=== PATIENT | female | born 1985 | race Two or more races ===

== ENCOUNTER 2018-03-26 03:15 | Inpatient (IN) | payer OTHER ==
[2018-03-26] MEDS: DEXTROSE 5%-LACTATED RINGERS 1,000 ML IV SCH (03:40)
--- NOTE | 2018-03-26 04:14 | HP ---
Past Medical History - Admission Chief Complaint: contractions History of Present Illness: 32yo EDC 03/28/2018 [facility]UP at 39.5 weeks presents with c/o ctx, some vaginal bleeding, no lof. care at [address] [place], [place] [id number] uncomplicated. labs reviewed: O+/RPR NR/Hep bsag negative/Rubella immune/quantiferon negative/ HIV negative; GBS positive. 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: Alzheimer's, CVA, Dementia, Migraine, Multiple Sclerosis, Peripheral Neuropathy, Parkinson's, Seizure, Syncope, TIA, Vertigo, Other Cardiovascular: No: AFIB, Aneurysm, Aortic Insufficiency, Aortic Stenosis, CAD, CHF, Deep Vein Thrombosis, HTN, Hyperlipdemia, [place], Mitral Insufficiency, Mitral Stenosis, Murmur, Pulmonary Hypertension, Other Pulmonary: No: Asthma, Bronchitis, Cancer, COPD, O2 Dependent, Pneumonia, Previously Intubated, Pulmonary Embolus, Pulmonary Fibrosis, Sleep Apnea, Other Gastrointestinal: No: Ascites, Cancer, Constipation, Crohn's Disease, Diverticulitis, Diverticulosis, Esophageal Varices, Gastritis, GERD, GI Bleed, Hemorrhoids, Hiatal Hernia, Inflamatory Bowel Disease, Irritable Bowel Disease, Pancreatitis, Peptic Ulcer Disease, Ulcerative Colitis, Other Hepatobiliary: No: Cirrhosis, Cholelithiasis, Cholecystitis, Choledocholithiasis , Hepatitis A, Hepatitis B, Hepatitis C, Other Renal/: No: Renal Failure, Renal Inusuff, BPH, Cancer, Hematuria, Hemodialysis , Neurogenic Bladder, Renal Calculi, UTI, Other Reproductive: No: Ectopic , Endometriosis, Fibroids, PID, Polycystic Ovary Syndrome, Postmenopausal, Other ...: 3 ...Para: 2 ...Term: 2 ...: 0 ...Spon : 0 ...Induced : 0 ...Multiple Gestation: 0 ...LMP: 06/21/17 ... Weeks Gestation by Dates: 39.5 ...EDC by Dates: 03/28/18 Infectious Disease: No: AIDS, C-Diff, Herpes Zoster, HIV, MRSA, STD's, Tuberculosis, VREF, Other Psych: No: Addictions, Anxiety, Bipolar, Depression, Panic, Psychosis, Schizophrenia, Other Musculoskeletal: No: Bursitis, Chronic low back pain, Hemiparesis, Hemiplegia, Osteoarthritis, Paraplegia, Other Rheumatology: No: Fibromyalgia, Gout, Lupus, Rheumatoid Arthritis, Sarcoidosis, Vasculitis, Other ENT: No: Allergic Rhinitis, Sinusitis, Other - Past Surgical History Past Surgical History: Yes: None Hx Myomectomy: No Hx Transabdominal Cerclage: No - Smoking History Smoking history: Never smoked Have you smoked in the past 12 months: No - Alcohol/Substance Use Hx Alcohol Use: No History of Substance Use: reports: None Home Medications - Allergies Allergies/Adverse Reactions: Allergies Allergy/AdvReac Type Severity Reaction Status Date / Time No Known Allergies Allergy Verified 03/19/18 14:06 - Home Medications Home Medications: Ambulatory Orders One Tablet 1 tab PO DAILY 03/19/18 Family Disease History - Family Disease History Family History: Unremarkable Review of Systems - Review of Systems Constitutional: reports: No Symptoms Eyes: reports: No Symptoms HENT: reports: No Symptoms Neck: reports: No Symptoms Cardiovascular: reports: No Symptoms Respiratory: reports: No Symptoms Gastrointestinal: reports: Abdominal Pain Genitourinary: reports: No Symptoms Breasts: reports: No Symptoms Reported Musculoskeletal: reports: No Symptoms Integumentary: reports: No Symptoms Physical Exam - Maternity Constitutional: Yes: Well Nourished, No Distress, Calm Eyes: Yes: WNL, Conjunctiva Clear, EOM Intact HENT: Yes: WNL, Atraumatic, Normocephalic Neck: Yes: WNL, Supple, Trachea Midline Cardiovascular: Yes: WNL, Regular Rate and Rhythm Breast(s): Yes: WNL - Abdominal Exam/OB Fundal Height: 39 Number of Fetuses: Single Presentation: Vertex Contractions: Yes Regularity: Irregular Intensity: Mild/Mod Monitor Mode: External Heart Rate (range): 145 Category: I Accelerations: None - Vaginal Exam/OB Vaginal Bleediing: No Dilatation (cm): 4 Effacement (%): 90 Amniotic Membrane Status: Bulging Presentation: Vertex/Position Station: -3 - Physical Exam Musculoskeletal: Yes: WNL Extremities: Yes: WNL Edema: No Integumentary: Yes: WNL ...Motor Strength: WNL Psychiatric: Yes: WNL Hemorrhage Risk Assessment - Risk Factors Medium Risk Factors: Yes: None High Risk Factors: Yes: None Risk Score: 1 Risk Level: Medium Risk Problem List - Problems (1) Labor and delivery indication for care or intervention Assessment/Plan: 32yo at 39.5 weeks in early labor admit to labor and delivery gbs positive-penicillin for prophylaxis pain management as needed expectant management for now category [address] Mcnamara Code(s): O75.9 - COMPLICATION OF LABOR AND DELIVERY, UNSPECIFIED
[2018-03-26] MEDS ORDERED: AMPICILLIN SODIUM 2 GM VIAL ONE (04:15)
[2018-03-26] MEDS ORDERED: BUTORPHANOL TARTRATE 1 MG/ML VIAL IVPB ONE (04:30)
[2018-03-26] MEDS ORDERED: PROMETHAZINE HCL 25 MG/1 ML VIAL IVPUSH ONE (04:30)
[2018-03-26] MEDS ORDERED: AMPICILLIN - 2 GM in SODIUM CHLORIDE 100 ML IVPB ONE (04:30)
[2018-03-26 04:35] LABS: BASO % 0.8 % (0-2.0); EOS % 2.6 % (0-4.5); HEMATOCRIT 37.6 % (32.4-45.2); HEMOGLOBIN 12.5 GM/dL (10.7-15.3); LYMPH % 31.4 % (8-40); MCH 31.6 pg (25.7-33.7); MCHC 33.3 g/dl (32.0-36.0); MEAN CELL VOLUME 94.8 fl (80-96); MEAN PLT VOLUME 9.3 fl (7.5-11.1); MONO % 6.9 % (3.8-10.2); NEUT % 58.3 % (42.8-82.8); PLATELET COUNT 216 K/MM3 (134-434); RBC 3.96 M/mm3 (3.60-5.2); RDW 13.2 % (11.6-15.6); WHITE BLOOD COUNT 6.9 K/mm3 (4.0-10.0)
[2018-03-26 04:38] VITALS: BMI 33.5
[2018-03-26 04:55] LABS: INR 0.82 (0.83-1.09); PROTHROMBIN TIME (PATIENT) 9.7 SEC (9.7-13.0)
[2018-03-26 04:58] LABS: ACTIVATED PTT 30.8 SECONDS (25.2-36.5)
[2018-03-26 05:18] LABS: ANION GAP 6 MMOL/L (8-16); BLOOD UREA NITROGEN 10 mg/dL (7-18); CALCIUM 8.6 mg/dL (8.5-10.1); CHLORIDE 107 mmol/L (98-107); CO2 27 mmol/L (21-32); CREATININE 0.7 mg/dL (0.55-1.3); GLUCOSE,RANDOM 82 mg/dL (74-106); POTASSIUM 4.8 mmol/L (3.5-5.1); SODIUM 139 mmol/L (136-145)
[2018-03-26] MEDS ORDERED: OXYTOCIN 20 UNITS in 0.9% NS 20 UNIT/1,000 ML INFUS.BAG IV ONE ×2 (07:12→10:15)
[2018-03-26] MEDS ORDERED: LIDOCAINE HCL 1% PRESERVATIVE FREE - 30ML VIAL ONE (07:12)
[2018-03-26] MEDS: OXYTOCIN 20 UNITS in 0.9% NS 20 UNIT/1,000 ML INFUS.BAG IV SCH (08:00)
[2018-03-26] MEDS ORDERED: WITCH HAZEL 50% (TUCKS) 40 PAD/JAR PAD TP PRN (08:02)
[2018-03-26] MEDS ORDERED: METHYLERGONOVINE MALEATE 0.2 MG/1 ML AMP IM PRN (08:02)
[2018-03-26] MEDS ORDERED: BENZOCAINE 28 GM HEMORRHOIDAL OINTMENT TP PRN (08:02)
[2018-03-26] MEDS ORDERED: BENZOCAINE 20% 57 GM BOTTLE TP PRN (08:02)
[2018-03-26] MEDS ORDERED: BISACODYL 10 MG SUPP.RECT RC PRN (08:02)
--- NOTE | 2018-03-26 08:06 | PN ---
Delivery - Delivery Vaginal Delivery: Spontaneous Episiotomy/Laceration: None EBL (cc): 250 Delivery, Single - Feeding Plan Initial Plan: Exclusive throughout hospitalization Remarks - Remarks Remarks: Normal spontaneous vaginal delivery of a live over intact perineum. Nose / Oropharynx suctioned @ perineum. Cord clamped and cut. Baby handed to neonatology nurse. Placenta expelled spontaneously intact.
[2018-03-26] MEDS: AMPICILLIN - 1 GM in SODIUM CHLORIDE 100 ML IVPB SCH (09:15)
[2018-03-26] MEDS: PRENATAL VITAMINS W/ FOLIC ACID TABLET (FP) PO SCH (13:22)
[2018-03-26] MEDS: FERROUS SO4 325 MG TABLET (FP) PO SCH ×2 (13:22→21:13)
[2018-03-26] MEDS: IBUPROFEN 600 MG TABLET (FP) PO PRN ×2 (16:37→22:44)
[2018-03-26] MEDS: ACETAMINOPHEN 325 MG TABLET (FP) PO PRN ×2 (16:38→22:44)
--- NOTE | 2018-03-27 07:20 | PN ---
Post Progress Note Type of Delivery: Vital Signs: Vital Signs Temperature 97.9 F 03/27/18 06:00 Pulse Rate 68 03/27/18 06:00 Respiratory Rate 20 03/27/18 06:00 Blood Pressure 98/54 L 03/27/18 06:00 O2 Sat by Pulse Oximetry (%) 100 03/26/18 09:30 Uterus: Yes: Fundus Firm, Fundus @ umbilicus Abdomen/GI: Yes: Abdomen soft Lochia: Yes: Rubra Lochia, amount: Small Extremities: Yes: Calves non-tender Perineum: Yes: Intact Activity: Ambulating - Labs Labs: CBC WBC 6.9 K/mm3 (4.0-10.0) 03/26/18 04:10 RBC 3.96 M/mm3 (3.60-5.2) 03/26/18 04:10 Hgb 12.5 GM/dL (10.7-15.3) 03/26/18 04:10 Hct 37.6 % (32.4-45.2) 03/26/18 04:10 MCV 94.8 fl (80-96) 03/26/18 04:10 MCH 31.6 pg (25.7-33.7) 03/26/18 04:10 MCHC 33.3 g/dl (32.0-36.0) 03/26/18 04:10 RDW 13.2 % (11.6-15.6) 03/26/18 04:10 Plt Count 216 K/MM3 (134-434) 03/26/18 04:10 MPV 9.3 fl (7.5-11.1) 03/26/18 04:10 Absolute Neuts (auto) 4.0 K/mm3 (1.5-8.0) 03/26/18 04:10 Neutrophils % 58.3 % (42.8-82.8) 03/26/18 04:10 Lymphocytes % 31.4 % (8-40) 03/26/18 04:10 Monocytes % 6.9 % (3.8-10.2) 03/26/18 04:10 Eosinophils % 2.6 % (0-4.5) 03/26/18 04:10 Basophils % 0.8 % (0-2.0) 03/26/18 04:10 Nucleated RBC % 0 % (0-0) 03/26/18 04:10 Assessment/Plan 32yo s/p , PPD#1 Routine PP care OOB, ambulate Labs pending Anticipate d/c to home tomorrow Viridiana Rajput MD
[2018-03-27 08:04] LABS: BASO % 0.8 % (0-2.0); EOS % 1.7 % (0-4.5); HEMATOCRIT 31.3 % (32.4-45.2); HEMOGLOBIN 10.3 GM/dL (10.7-15.3); LYMPH % 22.9 % (8-40); MCHC 32.9 g/dl (32.0-36.0); MEAN CELL VOLUME 94.4 fl (80-96); MEAN PLT VOLUME 9.3 fl (7.5-11.1); MONO % 5.3 % (3.8-10.2); NEUT % 69.3 % (42.8-82.8); PLATELET COUNT 168 K/MM3 (134-434); RBC 3.31 M/mm3 (3.60-5.2); RDW 13.5 % (11.6-15.6); WHITE BLOOD COUNT 11.6 K/mm3 (4.0-10.0)
[2018-03-27] MEDS: FERROUS SO4 325 MG TABLET (FP) PO SCH ×2 (09:39→22:12)
[2018-03-27] MEDS: PRENATAL VITAMINS W/ FOLIC ACID TABLET (FP) PO SCH (09:39)
[2018-03-27] MEDS ORDERED: DIPHTH,PERTUSS(ACELL),TET 0.5 ML DISP.SYRIN IM ONE (10:00)
[2018-03-27] MEDS: IBUPROFEN 600 MG TABLET (FP) PO PRN ×2 (18:02→22:12)
[2018-03-27] MEDS: ACETAMINOPHEN 325 MG TABLET (FP) PO PRN ×2 (18:03→22:14)
[2018-03-27] MEDS: DEXTROSE 5%-LACTATED RINGERS 1,000 ML IV SCH (21:34)
[2018-03-27] MEDS: OXYTOCIN 20 UNITS in 0.9% NS 20 UNIT/1,000 ML INFUS.BAG IV SCH (21:34)
[2018-03-27] MEDS ORDERED: SENNOSIDES/DOCUSATE COMBO (SENNA PLUS) TABLET (UD) PO PRN (22:00)
[2018-03-28] MEDS: AMPICILLIN - 1 GM in SODIUM CHLORIDE 100 ML IVPB SCH (00:47)
[2018-03-28 08:22] VITALS: BP 106/66; PULSE 71; TEMP 98.7
[2018-03-28] MEDS: FERROUS SO4 325 MG TABLET (FP) PO SCH (09:49)
[2018-03-28] MEDS: PRENATAL VITAMINS W/ FOLIC ACID TABLET (FP) PO SCH (09:49)
[2018-03-28] MEDS: IBUPROFEN 600 MG TABLET (FP) PO PRN (09:49)
== END 2018-03-28 11:35 | disposition home or self-care (01) | DRG 560 ==
LOC: JDEL 03:15 → JLDR 04:00 → J3W 10:30
PROVIDERS: ADMIT Obstetrics & Gynecology; ATTEND Obstetrics & Gynecology
PROC: 10E0XZZ Delivery of Products of Conception, External Approach (ICD-10-PCS; principal; 2018-03-26)
DX: O80 Encounter for full-term uncomplicated delivery (principal); Z3A.39 39 weeks gestation of pregnancy; Z37.0 Single live birth
CPT/HCPCS: 36415; 59409; 80048; 85025; 85610; 85730; 86593; 86850; 86900; 86901; 90686; 90715; G0008

== ENCOUNTER 2019-05-16 00:55 | Inpatient (IN) | payer OTHER ==
[2019-05-16] MEDS ORDERED: METHYLERGONOVINE MALEATE 0.2 MG/1 ML AMP IM PRN (01:39)
[2019-05-16] MEDS ORDERED: BENZOCAINE 28 GM HEMORRHOIDAL OINTMENT TP PRN (01:39)
[2019-05-16] MEDS ORDERED: BISACODYL 10 MG SUPP.RECT RC PRN (01:39)
[2019-05-16] MEDS ORDERED: BENZOCAINE 20% 57 GM BOTTLE TP PRN (01:39)
[2019-05-16] MEDS ORDERED: WITCH HAZEL 50% (TUCKS) 40 PAD/JAR PAD TP PRN (01:39)
--- NOTE | 2019-05-16 01:42 | HP ---
Past Medical History - Admission Chief Complaint: Uterine contractions History of Present Illness: 33yo @ 39+wks by LMP/sono, TAMIKO 05/19/2019 here with uterine contractions , . Patient presented to unit with head delivered already No VB. No LOF. +ctx. 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: Alzheimer's, CVA, Dementia, Migraine, Multiple Sclerosis, Peripheral Neuropathy, Parkinson's, Seizure, Syncope, TIA, Vertigo, Other Cardiovascular: No: AFIB, Aneurysm, Aortic Insufficiency, Aortic Stenosis, CAD, CHF, Deep Vein Thrombosis, HTN, Hyperlipdemia, [place], Mitral Insufficiency, Mitral Stenosis, Murmur, Pulmonary Hypertension, Other Pulmonary: No: Asthma, Bronchitis, Cancer, COPD, O2 Dependent, Pneumonia, Previously Intubated, Pulmonary Embolus, Pulmonary Fibrosis, Sleep Apnea, Other Gastrointestinal: No: Ascites, Cancer, Constipation, Crohn's Disease, Diverticulitis, Diverticulosis, Esophageal Varices, Gastritis, GERD, GI Bleed, Hemorrhoids, Hiatal Hernia, Inflamatory Bowel Disease, Irritable Bowel Disease, Pancreatitis, Peptic Ulcer Disease, Ulcerative Colitis, Other ...: 4 ...Para: 3 ...Term: 3 ...Spon : 0 ...Induced : 0 ...EDC by Sono: 05/19/19 - Past Surgical History Past Surgical History: Yes: None Hx Myomectomy: No Hx Transabdominal Cerclage: No - Smoking History Smoking history: Never smoked Have you smoked in the past 12 months: No - Alcohol/Substance Use Hx Alcohol Use: No History of Substance Use: reports: None - Social History Usual Living Arrangement: Yes: With Spouse Do you think of yourself as: Straight/Heterosexual ADL: Independent History of Recent Travel: Yes Home Medications - Allergies Allergies/Adverse Reactions: Allergies Allergy/AdvReac Type Severity Reaction Status Date / Time No Known Allergies Allergy Verified 03/26/18 05:29 - Home Medications Home Medications: Ambulatory Orders One Tablet 1 tab PO DAILY 03/19/18 Ibuprofen [Motrin -] 600 mg PO QID #28 tablet 03/27/18 Review of Systems - Review of Systems Constitutional: denies: No Symptoms, Chills, Diaphoresis, Fever, Lethargy, Loss of Appetite, Malaise, Night Sweats, Unintentional Wgt. Loss, Weakness, Other Cardiovascular: denies: No Symptoms, Chest Pain, Edema, Palpitations, Shortness of Breath, Other Respiratory: denies: No Symptoms, Cough, Exercise Intolerance, Hemoptysis, Orthopnea, PND, Snoring, SOB, SOB on Exertion, Wheezing, Other Gastrointestinal: denies: No Symptoms, Abdominal Pain, Bloating, Constipation, Diarrhea, Dysphagia, Indigestion, Melena, Nausea, Rectal Bleeding, Vomiting, Vomiting Blood, Other Physical Exam - Maternity Constitutional: Yes: Well Nourished, No Distress, Calm - Abdominal Exam/OB Number of Fetuses: Single Presentation: Vertex Contractions: Yes - Vaginal Exam/OB Dilatation (cm): 10 Effacement (%): 100 Station: +4 Assessment/Plan 33yo @ 39+wks here delivering Admit to LD Christie Rajput MD
--- NOTE | 2019-05-16 01:43 | PN ---
Delivery - Delivery Vaginal Delivery: Spontaneous Type of Anesthesia: None Episiotomy/Laceration: None Delivery, Single - Condition of Infant Nipple Threader/Trauma Therapist Present: No Gender: Male - 1 Minute Total Score: 4 5 Minutes Total Score: 8 Remarks - Remarks Remarks: Patient arrived to unit via wheelchair with 's head delivered. Nuchal x 1 , delivered through via nursing staff. Spontaneous delivery of intact placenta, 3VC by laborist Dr. Giles. Perineum inspected, no lacerations. EBL per nursing staff 250ml, this MD unable to assess EBL as room cleared prior to entry. Mother and baby doing well. Viridiana Rajput MD
[2019-05-16] MEDS ORDERED: OXYTOCIN 20 UNITS in 0.9% NS 20 UNIT/1,000 ML INFUS.BAG IV SCH (01:45)
[2019-05-16 02:09] VITALS: BMI 37.7
[2019-05-16 02:09] LABS: BASO % 0.4 % (0-2.0); EOS % 0.9 % (0-4.5); HEMATOCRIT 39.4 % (32.4-45.2); HEMOGLOBIN 13.4 GM/dL (10.7-15.3); LYMPH % 10.3 % (8-40); MCH 31.7 pg (25.7-33.7); MEAN CELL VOLUME 93.3 fl (80-96); MEAN PLT VOLUME 10.1 fl (7.5-11.1); MONO % 4.2 % (3.8-10.2); NEUT % 84.2 % (42.8-82.8); PLATELET COUNT 198 K/MM3 (134-434); RBC 4.23 M/mm3 (3.60-5.2); RDW 14.2 % (11.6-15.6); WHITE BLOOD COUNT 9.2 K/mm3 (4.0-10.0)
[2019-05-16 02:25] LABS: INR 0.87 (0.83-1.09); PROTHROMBIN TIME (PATIENT) 10.3 SEC (9.7-13.0)
[2019-05-16 02:33] LABS: BLOOD UREA NITROGEN 9.1 mg/dL (7-18); CALCIUM 9.1 mg/dL (8.5-10.1); CREATININE 0.9 mg/dL (0.55-1.3); POTASSIUM 4.2 mmol/L (3.5-5.1)
--- NOTE | 2019-05-16 06:26 | PN ---
Progress Note (short form) - Note Progress Note: Called to LD for evaluation of precipitous of baby by nurse after arrival. with nuchal cord x 1. Pt examined. Perineum intact no lacerations. Placenta delivered spontaneously intact minimal blood loss. and baby did well
[2019-05-16] MEDS: IBUPROFEN 600 MG TABLET (FP) PO PRN ×2 (08:44→21:14)
[2019-05-16] MEDS: PRENATAL VITAMINS W/ FOLIC ACID TABLET (FP) PO SCH (09:13)
[2019-05-16] MEDS: ACETAMINOPHEN 325 MG TABLET (FP) PO PRN (21:14)
[2019-05-17 07:55] LABS: BASO % 0.7 % (0-2.0); EOS % 5.1 % (0-4.5); HEMATOCRIT 34.7 % (32.4-45.2); HEMOGLOBIN 11.8 GM/dL (10.7-15.3); LYMPH % 31.7 % (8-40); MCH 31.7 pg (25.7-33.7); MCHC 34.1 g/dl (32.0-36.0); MEAN PLT VOLUME 9.6 fl (7.5-11.1); MONO % 9.1 % (3.8-10.2); NEUT % 53.4 % (42.8-82.8); PLATELET COUNT 184 K/MM3 (134-434); RBC 3.73 M/mm3 (3.60-5.2); RDW 14.3 % (11.6-15.6); WHITE BLOOD COUNT 8.5 K/mm3 (4.0-10.0)
[2019-05-17] MEDS: IBUPROFEN 600 MG TABLET (FP) PO PRN ×2 (08:26→21:30)
[2019-05-17] MEDS: ACETAMINOPHEN 325 MG TABLET (FP) PO PRN ×2 (08:29→21:30)
[2019-05-17] MEDS: PRENATAL VITAMINS W/ FOLIC ACID TABLET (FP) PO SCH (11:46)
--- NOTE | 2019-05-17 13:25 | PN ---
Post Progress Note Type of Delivery: Vital Signs: Vital Signs Temperature 98.2 F 05/17/19 09:10 Pulse Rate 75 05/17/19 09:10 Respiratory Rate 20 05/17/19 09:10 Blood Pressure 102/61 05/17/19 09:10 O2 Sat by Pulse Oximetry (%) 100 05/16/19 02:00 Uterus: Yes: Fundus below umbilicus Incision: Yes: Dressing dry and intact Abdomen/GI: Yes: Abdomen soft, Tolerating PO Lochia: Yes: Rubra Lochia, amount: Small Extremities: Yes: Calves non-tender Perineum: Yes: Intact Activity: Ambulating - Labs Labs: CBC WBC 8.5 K/mm3 (4.0-10.0) 05/17/19 07:15 RBC 3.73 M/mm3 (3.60-5.2) 05/17/19 07:15 Hgb 11.8 GM/dL (10.7-15.3) 05/17/19 07:15 Hct 34.7 % (32.4-45.2) 05/17/19 07:15 MCV 93.0 fl (80-96) 05/17/19 07:15 MCH 31.7 pg (25.7-33.7) 05/17/19 07:15 MCHC 34.1 g/dl (32.0-36.0) 05/17/19 07:15 RDW 14.3 % (11.6-15.6) 05/17/19 07:15 Plt Count 184 K/MM3 (134-434) 05/17/19 07:15 MPV 9.6 fl (7.5-11.1) 05/17/19 07:15 Absolute Neuts (auto) 4.5 K/mm3 (1.5-8.0) 05/17/19 07:15 Neutrophils % 53.4 % (42.8-82.8) D 05/17/19 07:15 Lymphocytes % 31.7 % (8-40) D 05/17/19 07:15 Monocytes % 9.1 % (3.8-10.2) D 05/17/19 07:15 Eosinophils % 5.1 % (0-4.5) H D 05/17/19 07:15 Basophils % 0.7 % (0-2.0) 05/17/19 07:15 Nucleated RBC % 0 % (0-0) 05/17/19 07:15 Assessment/Plan 33yo s/p , PPD#1 Routine PP care OOB, ambulate Labs reviewed, normal D/C to home by PPD#2 Julieta Rajput MD
[2019-05-17] MEDS ORDERED: SENNOSIDES/DOCUSATE COMBO (SENNA PLUS) TABLET (UD) PO PRN (22:00)
[2019-05-18 07:34] VITALS: BP 105/52; PULSE 77; TEMP 98.2
--- NOTE | 2019-05-18 08:30 | DS ---
Physical Examination Vital Signs: Vital Signs Temperature 98.2 F 05/18/19 07:31 Pulse Rate 77 05/18/19 07:31 Respiratory Rate 18 05/18/19 07:31 Blood Pressure 105/52 L 05/18/19 07:31 O2 Sat by Pulse Oximetry (%) 100 05/16/19 02:00 Constitutional: Yes: Well Nourished, No Distress, Calm Eyes: Yes: WNL, Conjunctiva Clear, EOM Intact HENT: Yes: WNL, Atraumatic, Normocephalic Neck: Yes: WNL, Supple, Trachea Midline Cardiovascular: Yes: WNL, Regular Rate and Rhythm Respiratory: Yes: WNL, Regular, CTA Bilaterally Gastrointestinal: Yes: WNL, Normal Bowel Sounds Musculoskeletal: Yes: WNL Extremities: Yes: WNL Edema: No Integumentary: Yes: WNL Neurological: Yes: WNL, Alert, Oriented ...Motor Strength: WNL Psychiatric: Yes: WNL Labs: CBC, BMP 05/17/19 07:15 05/16/19 01:35 Discharge Summary Problems reviewed: Yes Reason For Visit: ADMIT LABOR Procedures: Principal: Hospital Course: Patient presented and delivered precipitously She met all milestones. She was discharged home on PPD2 in stable condition Condition: Stable - Instructions Diet, Activity, Other Instructions: Regular Diet Follow up in 4-6 weeks for your visit Referrals: Salina Santiago CNM [Certified Nurse Lime Puller] - Viridiana Rajput MD [Staff Physician] - Disposition: HOME - Home Medications Comprehensive Discharge Medication List: Ambulatory Orders One Tablet 1 tab PO DAILY 03/19/18 Ibuprofen [Motrin -] 600 mg PO QID #28 tablet 03/27/18 Ibuprofen 600 mg PO Q6H PRN #30 tablet 05/16/19
[2019-05-18] MEDS: PRENATAL VITAMINS W/ FOLIC ACID TABLET (FP) PO SCH (09:25)
== END 2019-05-18 13:10 | disposition home or self-care (01) | DRG 560 ==
LOC: JLDR 00:55 → J3W 03:00
PROVIDERS: ADMIT Obstetrics & Gynecology; ATTEND Obstetrics & Gynecology
PROC: 10E0XZZ Delivery of Products of Conception, External Approach (ICD-10-PCS; principal; 2019-05-16)
DX: O69.81X0 Labor and delivery complicated by cord around neck, without compression, not applicable or unspecified (principal); Z3A.39 39 weeks gestation of pregnancy; Z37.0 Single live birth
CPT/HCPCS: 36415; 59409; 80048; 85025; 85610; 85730; 86593; 86850; 86900; 86901